=== PATIENT | female | born 1940 | race Caucasian/White ===

== ENCOUNTER 2018-01-09 15:18 | Emergency (ER) | payer OTHER ==
--- NOTE | 2018-01-09 15:29 | EDPHY ---
H & P Source: Patient, EMS Exam Limitations: No limitations - Medical/Surgical History Hx Asthma: No Hx Chronic Respiratory Disease: No Hx Diabetes: No Hx Cardiac Disease: No Hx Renal Disease: No Hx Cirrhosis: No Hx Alcoholism: No - Family History Significant Family History: No pertinent family hx - Social History Smoking Status: Never smoked Alcohol Use: Sober Drug Use: None Time Seen by Provider: 01/09/18 15:26 HPI/ROS: CHIEF COMPLAINT: Fell down stairs HISTORY OF PRESENT ILLNESS: Patient is a 77-year-old female who was walking down the stairs and tried to get around a student when she tripped and fell forward. She rolled down several stairs. She has a small laceration to the back of her head. No headache. No neck tenderness. She does not take blood thinners. She also has a contusion to her right forearm and right hip. She is not concerned about these. She was ambulatory at the scene. She was placed in a cervical collar by EMS. REVIEW OF SYSTEMS: Constitutional: denies: chills, fever, recent illness, recent injury EENTM: denies: blurred vision, double vision, nose congestion Respiratory: denies: cough, shortness of breath Cardiac: denies: chest pain, irregular heart rate, lightheadedness, palpitations Gastrointestinal/Abdominal: denies: abdominal pain, diarrhea, nausea, vomiting, blood streaked stools Genitourinary: denies: dysuria, frequency, hematuria, pain Musculoskeletal: See HPI Skin: See HPI Neurological: denies: headache, numbness, paresthesia, tingling, dizziness, weakness Hematologic/Lymphatic: denies: blood clots, easy bleeding, easy bruising Immunologic/allergic: denies: HIV/AIDS, transplant Patient is alert not anxious or lethargic and in no distress c-collar in place, cervical collar cleared by me on arrival no neck tenderness with palpation or movement HEAD: 1 cm occipital laceration with hematoma. No crepitus or deformity. no raccoon eyes, no Meneses sign. NECK: is nontender and has painless range of motion, trachea is midline, NEXUS criteria negative (no midline tenderness no distracting injury no altered mental status no recent alcohol and no focal neuro deficits EYES: pupils equal round reactive to light and accommodating, extraocular muscles are intact no palsy or entrapment, no subconjunctival hemorrhage ENT: Normal external inspection, airway intact, no dental or oral injuries, no clotted nasal blood, no septal hematoma, no hemotympanum CARDIOVASCULAR: heart sounds normal, not tachycardic or bradycardic, Chest is non-tender no rib tenderness no palpable fracture, no crepitus, no subcutaneous emphysema RESPIRATORY: no splinting, no paradoxical movements, gross sounds normal, no wheezes no rales no rhonchi, no respiratory distress ABDOMEN: Abdomen is nontender in all 4 quadrants no guarding no rebound, no distention, no hernias, no masses or bruits. GENITAL/RECTAL: Stable pelvis NEUROLOGIC/PSYCH: Oriented x3, cranial nerves normal as assessed, face symmetrical, sensation normal, motor grossly normal, not perseverating, cranial nerves II through XII intact normal reflexes Mary Coma score: 15 SKIN: See above , hematoma right forearm and right hip no lacerations, nondiaphoretic. BACK: No CVA tenderness, no vertebral point tenderness, no muscle spasm normal range of motion EXTREMITIES: See above, moving all extremities without pain. No deformity. pelvis stable, nontender able to bear weight, no pulse deficit, normal range of motion, normal color and temperature (Sam Ryan) Constitutional: Initial Vital Signs Temperature (C) 37.0 C 01/09/18 15:28 Heart Rate 78 01/09/18 15:28 Respiratory Rate 16 01/09/18 15:28 Blood Pressure 214/191 H 01/09/18 15:28 O2 Sat (%) 93 01/09/18 15:28 O2 Delivery Mode Room Air Allergies/Adverse Reactions: meperidine [From Demerol] Allergy (Verified 01/09/18 16:23) Home Medications: Medication Instructions Recorded Aspirin 01/09/18 HCTZ (*) 01/09/18 Synthroid 01/09/18 Wellbutrin 100mg (*) 01/09/18 Medical Decision Making Procedures: Procedure: Laceration repair. I was requested by to perform wound closure I explained the indications, risks and benefits for both laceration repair and anesthetic administration. Verbal consent was obtained from the patient . The laceration on the left occiput was anesthetized using 0.5% bupivicaine with epinephrine . After anesthetic administered the patient was observed for a period of time and had no apparent adverse effects. The wound was cleaned, prepped, draped in normal sterile fashion and explored to its base. No foreign body seen, no foreign bodies palpated. There were no deep structures involved. The wound was repaired with 5 susan. The wound repair was simple. The procedure was performed by myself. Patient has been informed that scarring will occur, although efforts have been made to minimize this. (Leeanna Marshall) ED Course/Re-evaluation: The patient has a small head laceration. She states that she has a baby headache but is not concerned about it. She was offered CT imaging but declined. Instead we will observe her for a time. We also offered imaging of her arm and hip but she declines. 4:35 p.m. the patient states that her baby headache is now completely resolved. She denies neck pain. She has a hematoma to her right forearm but it is not painful to her and she has no difficulty moving her arm. She again refuses CT and x-rays. I believe that this is reasonable. I discussed with her indications for returning as well as with her daughter. She declines further workup or testing at this time and is eager to go home. (Sam Ryan) Differential Diagnosis: Partial list of the Differential diagnosis considered include but were not limited to; scalp laceration, contusion, concussion and although unlikely based on the history and physical exam, I also considered fracture, intracranial injury, C-spine injury, thoracic injury, hip fracture. I discussed these differential diagnoses and the plan with the patient as well as the usual and expected course. The patient understands that the diagnosis is provisional and that in medicine we are not always correct and that further workup is often warranted. Usual and customary warnings were given. All of the patient's questions were answered. The patient was instructed to return to the emergency department should the symptoms at all worsen or return, otherwise to followup with the physician as we discussed. (Sam Ryan) Departure - Departure Disposition: Home, Routine, Self-Care Clinical Impression: Laceration, Hematoma Condition: Good Instructions: Laceration (ED), Staple Care (ED), Hematoma (ED) Additional Instructions: Have your susan removed in 10 days. Referrals: Patient,NotPresent [Unknown] - As per Instructions
[2018-01-09 15:32] VITALS: RESP 16; TEMP 98.6
[2018-01-09 16:56] VITALS: BP 155/111; PULSE 76; O2SAT 100
== END 2018-01-09 16:56 | disposition home or self-care (01) ==
LOC: EDUNIT#
PROC: 0HQ0XZZ Repair Scalp Skin, External Approach (ICD-10-PCS; principal; 2018-01-09)
DX: S01.01XA Laceration without foreign body of scalp, initial encounter (principal); Z79.82 Long term (current) use of aspirin; W10.8XXA Fall (on) (from) other stairs and steps, initial encounter; Y99.8 Other external cause status; Y93.01 Activity, walking, marching and hiking